=== PATIENT | male | born 1960 | race Caucasian/White ===

== ENCOUNTER 2018-03-30 06:30 | Emergency (ER) | payer MEDICARE, MEDICAID ==
[~2018-03-30] VITALS: Ht 188 cm; Wt 110.9 kg
[2018-03-30 06:33] VITALS: BP 155/98
[2018-03-30] MEDS ORDERED: CLIN150C8 PO (06:46)
[2018-03-30] MEDS ORDERED: HYDR-3965 PO (06:46)
== END 2018-03-30 07:00 | disposition home or self-care (01) ==
LOC: ER 06:31
DX: K08.89 Other specified disorders of teeth and supporting structures (principal); Z79.2 Long term (current) use of antibiotics; Z79.899 Other long term (current) drug therapy
CPT/HCPCS: 99283